=== PATIENT | female | born 1960 | race Caucasian/White ===

== ENCOUNTER → 2019-01-17 | Outpatient (CLI) | payer OTHER, SELFPAY ==
--- NOTE | 2019-01-17 16:45 | MRI_ITS ---
HISTORY: Trigeminal neuralgia. 650.0. Nerve compression for 7 months. Lower right jaw and behind ears. Vascular decompression in 2011. Technique: Sagittal T1, and multiple axial series were obtained through the brain. Coronal T2. Many axial sagittal and coronal series were then obtained through the temporal bone. 12 mL of Dotarem intravenous gadolinium was administered. Post gadolinium imaging was obtained through the entire brain as well as through the temporal bone. 20 series. 1124 images. No comparison imaging of any kind. MRI brain: Brain atrophy is minimal. No acute ischemia is present. Flow is present within major central intracranial arteries. Paranasal sinuses and mastoid air cells are free of disease but for a tiny mucuo-serous retention cyst within the posterior inferior aspect of the right maxillary sinus. Martines-white differentiation is preserved. There are no masses, herniations, nor deviations. No enhancing lesions are perceived within the brain. MRI of the temporal bones: The fifth, sixth, seventh, and eighth cranial nerves bilaterally demonstrate their origin and are without evidence of impingement at the base of the brain. Internal auditory canals are not expanded. Vestibula and cochlear systems are normal. No enhancing masses are present within the skull base. There is some artifact within the soft tissues posterior to the right mastoid air cells within the soft tissues. This likely represents some metal perhaps a foreign body within this region. MRI of the temporomandibular joints. Both mandibular condyles are well-seated within their respective mandibular fossae on these closed mouth images. No open mouth images are provided. MRI/Brain W/WO Contrast IMPRESSION: Minimal brain atrophy. No acute disease perceived. at 0347 Reported and signed by: Terence Lagos MD Electronically Signed: Terence Lagos MD at 3:45 EDT Tel , Service support ,
[2019-01-17 17:26] LABS: CREATININE FINGERSTICK 0.7 mg/dL (0.55-1.02); EGFR FINGERSTICK > 60.0000 mL/min (>60)
== END | disposition home or self-care (01) ==
PROVIDERS: Family Provider Family Medicine; PCP Family Medicine; Referring Provider Family Medicine; Visit Provider Family Medicine
DX: G50.0 Trigeminal neuralgia (principal)
CPT/HCPCS: 70553; A9575